=== PATIENT | female | born 1945 | race Caucasian/White ===

== ENCOUNTER → 2016-04-16 | Outpatient (CLI) | payer MEDICARE ==
[~2016-04-16] VITALS: Ht 165.1 cm; Wt 72.6 kg
--- NOTE | 2016-04-16 10:25 | Progress Note-Pre Operative ---
Pre-Operative Progress Note H&P Reviewed The H&P was reviewed, patient examined and no changes noted. Date H&P Reviewed: Apr 16, 2016 Time H&P Reviewed: 10:20 Pre-Operative Diagnosis: Left T hyroid Nodule JAKUB MEJÍA MD Apr 16, 2016 10:25 am
--- NOTE | 2016-04-16 10:26 | Progress Note-Post Operative ---
Post-Operative Progess Note Pre-Operative Diagnosis Left T hyroid Nodule Post-Operative Diagnosis same Post-Op Procedure Note Date of Procedure: Apr 16, 2016 Name of Procedure: US guided FNA of Left Thyroid Nodule Anesthesia Type local Estimated blood loss (mL): minimal Specimen(s) collected slides and cytology to pathology JAKUB MEJÍA MD Apr 16, 2016 10:26 am
--- NOTE | 2016-04-16 11:06 | Diagnostic Imaging Report ---
EXAMINATION: Dedicated thyroid ultrasound performed with ultrasound guidance provided for FNA performed by Dr. Feliz. Indication: Thyroid nodule FINDINGS: Ultrasound images demonstrate a left thyroid nodule. IMPRESSION: Ultrasound guidance provided for left thyroid nodule FNA. Dictated by: Dictated on workstation # [id number]
== END ==
LOC: RAD 10:09
PROVIDERS: ATTEND Otolaryngology Otolaryngology/Facial Plastic Surgery
DX: E04.1 Nontoxic single thyroid nodule (principal)
CPT/HCPCS: 76942

== ENCOUNTER → 2016-07-09 | Outpatient (CLI) | payer MEDICARE ==
--- NOTE | 2016-07-09 18:08 | Diagnostic Imaging Report ---
PROCEDURE: US Thyroid. TECHNIQUE: Multiple real-time grayscale images were obtained of the thyroid in various projections. INDICATION: Follow-up thyroid nodule. FINDINGS: The right thyroid lobe is 4.5 x 2 x 1.7 cm. The left lobe is 5 x 2 x 1.9 cm. There is a dominant nodule measuring 1.6 x 1.7 x 1.7 cm at the inferior aspect of the left thyroid lobe with solid and cystic component suggested. There is another nodule measuring 0.9 x 0.6 x 0.8 cm in the mid left thyroid lobe with suggestion of microcalcifications. When compared to 02/19/2016 there is no change seen. There is slight heterogeneity in the left thyroid lobe with no discrete nodule identified. IMPRESSION: Stable nodules in the mid and inferior aspect of the left thyroid lobe. Note is made of a biopsy performed on 04/16/2016. Correlate with biopsy results. Dictated by: Dictated on workstation # [id number]
== END ==
LOC: RAD 15:18
PROVIDERS: ATTEND Otolaryngology Otolaryngology/Facial Plastic Surgery
DX: E04.2 Nontoxic multinodular goiter (principal)
CPT/HCPCS: 76536

== ENCOUNTER → 2016-12-01 | Outpatient (CLI) | payer MEDICARE ==
--- NOTE | 2016-12-01 19:10 | Diagnostic Imaging Report ---
INDICATION: Thyroid nodules, followup. TECHNIQUE: Grayscale sonographic images of the thyroid gland. CORRELATION STUDY: 07/09/2016 FINDINGS: RIGHT LOBE: 4.2 x 2.0 x 1.8 cm. Right lobe mildly enlarged but otherwise uniform in echotexture without focal lesion. LEFT LOBE: 4.7 x 2.3 x 2.0 cm. Left lobe enlarged. In the inferior pole is a mixed solid and cystic mass again demonstrated. This currently measures 2.1 x 1.9 x 2.0 cm. This does appear to be larger, previously 1.6 x 1.7 x 1.7 cm. Additionally, the multifocal cystic changes do appear to be overall slightly larger as well. Some of these areas, however, do appear to be more simple in their appearance. There is vascular blood flow within the solid components. No significant halo suggested. Additional more focal heterogeneous area of echotexture centrally measures 8 x 6 x 8 mm stable, previously at 9 x 6 x 8 mm. May be a few microcalcifications of this area. No significant vascular blood flow. Isthmus appears unremarkable. IMPRESSION: 1. Enlarged thyroid gland. 2. Dominant mass in the inferior pole of left lobe does appear to be slightly increased in size from prior study along with slightly more cystic changes present. Continued followup evaluation recommended. Dictated by: Dictated on workstation # [id number]
== END ==
LOC: RAD 11:12
PROVIDERS: ATTEND Otolaryngology Otolaryngology/Facial Plastic Surgery
DX: E04.1 Nontoxic single thyroid nodule (principal)
CPT/HCPCS: 76536

== ENCOUNTER → 2017-06-07 | Outpatient (CLI) | payer MEDICARE, OTHER ==
--- NOTE | 2017-06-07 12:57 | Diagnostic Imaging Report ---
PROCEDURE: US Thyroid. TECHNIQUE: Multiple Real-time grayscale images were obtained of the thyroid in various projections. INDICATION: Left thyroid nodule. COMPARISON: 12/01/2016. FINDINGS: The right lobe of the thyroid measures 3.8 x 2.1 x 1.8 cm and the left lobe measures 4.2 x 1.9 x 2.1 cm. The previously noted nodule in the mid aspect of the left lobe is stable at approximately 9 x 8 x 6 cm. The dominant solid mass in the lower pole of the left lobe is also stable measuring approximately 2.0 x 2.1 x 1.9 cm. This does contain some internal cystic components. No new mass is identified. IMPRESSION: Stable left lobe thyroid nodules when compared with the examination from 12/01/2016. Dictated by: Dictated on workstation # [id number]
== END ==
LOC: RAD 11:43
PROVIDERS: ATTEND Otolaryngology Otolaryngology/Facial Plastic Surgery
DX: E04.2 Nontoxic multinodular goiter (principal)
CPT/HCPCS: 76536

== ENCOUNTER → 2018-06-09 | Outpatient (CLI) | payer MEDICARE, OTHER ==
[2018-06-09 13:27] LABS: FREE T4 (FREE THYROXINE) 1.03 NG/DL (0.70-1.48)
--- NOTE | 2018-06-09 16:54 | Diagnostic Imaging Report ---
PROCEDURE: US Thyroid. TECHNIQUE: Multiple real-time grayscale images were obtained of the thyroid in various projections. INDICATION: Thyroid nodule. FINDINGS: The previous thyroid ultrasound exam performed on 06/07/2017 noted a 2.0 x 2.1 x 1.9 cm solid mass with cystic components in the inferior pole of the left lobe of thyroid. On this exam, that finding is again evident and now measures 1.7 x 1.9 x 2.3 cm. The cystic components do seem more prominent than on the previous exam. The prior study also identified a 0.9 x 0.8 x 0.6 cm nodule in the midportion of the left lobe. That nodule now measures 1.0 x 0.7 x 1.1 cm. The left lobe does not appear to have changed significantly, otherwise. The right lobe is fairly homogeneous. Neither lobe is enlarged with the right lobe measuring 4.3 x 1.8 x 1.4 cm and left lobe estimated to be 4.4 x 1.7 x 1.8 cm (normal gland size 4-5 x 2 x 2 cm or less). IMPRESSION: 1. The complex nodule in the inferior pole of the left lobe of the thyroid seen previously is again evident and does not appear to have changed significantly in size. The cystic components within this nodule do seem more prominent, however. 2. The overall appearance of the thyroid gland is otherwise stable. No new abnormality has developed. Dictated on workstation # [id number]
== END ==
LOC: RAD 12:32
PROVIDERS: ATTEND Otolaryngology Otolaryngology/Facial Plastic Surgery
DX: E04.1 Nontoxic single thyroid nodule (principal)
CPT/HCPCS: 36415; 76536; 84439; 84443

== ENCOUNTER → 2019-12-22 | Outpatient (CLI) | payer MEDICARE, OTHER ==
--- NOTE | 2019-12-22 13:03 | Diagnostic Imaging Report ---
PROCEDURE: US Thyroid. TECHNIQUE: Multiple real-time grayscale images were obtained of the thyroid in various projections. INDICATION: Thyroid nodules, follow-up. COMPARISON: Correlation is made with prior thyroid ultrasound from 06/09/2018. FINDINGS: The right lobe of thyroid measures 4.9 x 1.9 x 1.8 cm and the left lobe measures 5.2 x 2.1 x 1.9 cm. Right lobe is heterogeneous but no discrete mass is identified. Left lobe again demonstrates solid, circumscribed hypoechoic nodule in mid portion measuring 0.9 x 0.8 x 0.9 cm. This is unchanged. The dominant nodule in lower pole of left lobe is again noted and now appears to be primarily cystic with some internal septations. Overall size has increased, now measuring 2.9 x 2.2 x 2.0 cm compared with 1.7 x 1.9 x 2.3 cm. No new masses detected. IMPRESSION: Increase in size of left lower pole thyroid nodule which is now primarily cystic. Dictated by: Dictated on workstation # [id number]
== END ==
LOC: RAD 11:00
PROVIDERS: ATTEND Otolaryngology Otolaryngology/Facial Plastic Surgery
DX: E04.2 Nontoxic multinodular goiter (principal)
CPT/HCPCS: 76536

== ENCOUNTER → 2021-10-23 | Outpatient (CLI) | payer MEDICARE, OTHER ==
[2021-10-23 16:42] LABS: HEMATOCRIT 40 % (35-52); HEMOGLOBIN 13.3 g/dL (11.5-16.0); MEAN CORPUSCULAR HEMOGLOBIN 29 pg (25-34); MEAN CORPUSCULAR HGB CONC 34 g/dL (32-36); MEAN CORPUSCULAR VOLUME 88 fL (80-99); MEAN PLATELET VOLUME 10.4 fL (9.0-12.2); PLATELET COUNT 317 10^3/uL (130-400); WHITE BLOOD COUNT 7.3 10^3/uL (4.3-11.0)
--- NOTE | 2021-10-23 16:56 | Diagnostic Imaging Report ---
INDICATION: Palpitation PA and lateral views of the chest are obtained. COMPARISON: No previous study is available for comparison at this time. FINDINGS: Heart size and pulmonary vasculature are within normal limits, and the lungs are clear, bilaterally. IMPRESSION: Unremarkable chest. Dictated by: Dictated on workstation # [id number]
[2021-10-23 17:08] LABS: ALANINE AMINOTRANSFERASE 27 U/L (0-55); ALBUMIN 4.1 GM/DL (3.2-4.5); ALKALINE PHOSPHATASE 65 U/L (40-136); BILIRUBIN,TOTAL 0.4 MG/DL (0.1-1.0); BUN/CREATININE RATIO 23; CALCIUM 9.3 MG/DL (8.5-10.1); CARBON DIOXIDE 23 MMOL/L (21-32); CHLORIDE 106 MMOL/L (98-107); CREATINE KINASE 62 U/L (29-168); CREATININE SERUM 0.64 MG/DL (0.60-1.30); GFR ESTIMATED 92; GLUCOSE 94 MG/DL (70-105); SODIUM 143 MMOL/L (135-145); TOTAL PROTEIN 6.8 GM/DL (6.4-8.2)
== END ==
LOC: CARD 16:06
PROVIDERS: ATTEND Nurse Practitioner Family
DX: R00.2 Palpitations (principal); R00.0 Tachycardia, unspecified
CPT/HCPCS: 36415; 71046; 80053; 82550; 84443; 84484; 85027; 85379; 93005

== ENCOUNTER → 2021-10-27 | Outpatient (CLI) | payer MEDICARE, OTHER | LOC: CARD 12:00 | PROVIDERS: ATTEND Nurse Practitioner Family | DX: I51.7 Cardiomegaly (principal); R94.31 Abnormal electrocardiogram [ECG] [EKG] | CPT/HCPCS: 93306 ==

== ENCOUNTER → 2021-12-18 | Outpatient (CLI) | payer MEDICARE, OTHER ==
--- NOTE | 2021-12-18 18:34 | Diagnostic Imaging Report ---
Exam: Ultrasound thyroid. Date: December 18, 2021. Comparison: December 21, 2020 ultrasound thyroid. Indication: 76-year-old female, left thyroid nodule. Findings: Two-dimensional grayscale and color Doppler images were obtained of the thyroid. Right lobe of the thyroid: There is a heterogeneously echoic right thyroid nodule measuring 1.3 x 1.1 x 1.2 cm in size with internal blood flow. The right lobe of the thyroid measures 4.4 x 2.0 x 1.7 cm. Left lobe of the thyroid: There is a hypoechoic left thyroid nodule with internal hyperechogenic foci measuring 1.1 x 0.7 x 1.0 cm in size. There is no well demonstrated internal blood flow although the nodule does appear to be likely solid. There is an irregular heterogeneously hypoechoic left thyroid nodule in the inferior aspect of the left lobe of the thyroid measuring 2.4 x 1.9 x 1.7 cm in size with internal blood flow.The left lobe of the thyroid measures 4.8 x 1.9 x 1.7 cm. Isthmus: The thyroid isthmus is unremarkable. The isthmus measures 0.2 cm. Impression: 1. Indeterminate 1.3 cm right thyroid nodule. This does not appear to be demonstrated on the prior ultrasound. 2. Left thyroid nodules measuring up to 2.4 and 1.1 cm in size. The 1.1 cm nodule previously measured 9 mm in size in 2019. The 2.4 cm nodule previously measured 2.9 cm in size and has decreased in size. 3. Consider further evaluation with nuclear medicine iodine imaging to assess whether or not the nodules are iodine avid. Dictated by: Dictated on workstation # [id number]
== END ==
LOC: RAD FS 10:05
PROVIDERS: ATTEND Otolaryngology Otolaryngology/Facial Plastic Surgery
DX: E04.2 Nontoxic multinodular goiter (principal)
CPT/HCPCS: 76536

== ENCOUNTER → 2023-02-17 | Outpatient (CLI) | payer MEDICARE, OTHER ==
--- NOTE | 2023-02-17 16:34 | Diagnostic Imaging Report ---
PROCEDURE: US carotid duplex, bilateral. TECHNIQUE: Multiple real-time grayscale images were obtained over the carotid arteries in various projections, bilaterally. Additional spectral analysis and color Doppler duplex images were also obtained. INDICATION: Carotid stenosis. COMPARISON: None available. FINDINGS: Right carotid circulation: There is mild plaque formation in the right carotid bifurcation. Based on grayscale images and flow velocity criteria, there is mild stenoses (<50%) of the right internal carotid artery. Left carotid circulation: There is mild plaque formation in the left carotid bifurcation. Based on grayscale images and flow velocity criteria, there is mild stenoses (<50%) of the left internal carotid artery. Flow in the bilateral vertebral arteries is antegrade. IMPRESSION: 1. Mild (<50%) stenosis of the right internal carotid artery. 2. Mild (<50%) stenosis of the left internal carotid artery. Society of Radiologist in Ultrasound Consensus: Normal: ICA PSV is <125 cm/sec and no plaque or intimal thickening is visible sonographically ICA/CCA PSV ratio <2.0 ICA EDV <40 cm/sec Mild (<50% ICA stenosis): ICA PSV is <125 cm/sec and plaque or intimal thickening is visible sonographically ICA/CCA PSV ratio <2.0 ICA EDV <40 cm/sec Moderate (50-69% ICA stenosis) ICA PSV is 125-230 cm/sec and plaque is visible sonographically ICA/CCA PSV ratio of 2.0-4.0 ICA EDV of 40-100 cm/sec Severe (?70% ICA stenosis but less than near occlusion): ICA PSV is >230 cm/sec and visible plaque and luminal narrowing are seen at fuentes-scale and color Doppler ultrasound (the higher the Doppler parameters lie above the threshold of 230 cm/sec, the greater the likelihood of severe disease) ICA/CCA PSV ratio >4 ICA EDV >100 cm/sec Near occlusion of the ICA Velocity parameters may not apply, since velocities may be high, low, or undetectable Markedly narrowed lumen at color or power Doppler ultrasound Total occlusion of the ICA: No detectable patent lumen at fuentes-scale ultrasound and no flow with spectral, power, and color Doppler ultrasound May be compensatory increased velocity in the contralateral carotid Parameters based on the consensus panel Fuentes-Scale and Doppler ultrasound criteria published February 2003, Radiology, Volume 229. DOPPLER (peak systolic velocity M/S Right Left CCA 0.74 0.85 ICA Proximal 0.33 0.57 ICA Mid 0.65 0.89 ICA Distal 0.83 1.17 RATIO 1.12 1.38 ECA 0.86 0.67 VERT 0.52 0.40 Dictated by: Dictated on workstation # [id number]
== END ==
LOC: RAD 12:31
PROVIDERS: ATTEND Family Medicine
DX: I65.23 Occlusion and stenosis of bilateral carotid arteries (principal)
CPT/HCPCS: 93880